=== PATIENT | male | born 1965 | race Caucasian/White ===

== ENCOUNTER 2020-05-23 08:29 | Day surgery (SDC) | payer OTHER ==
[2020-05-23] VITALS (8 sets, daily range): BP systolic 101–119; BP diastolic 45–78; PULSE 89–95; TEMP 98
[~2020-05-23] VITALS: Ht 175.3 cm; Wt 99.0 kg
[2020-05-23] MEDS ORDERED: ASPIRIN E.C. 8181 MG PO (09:03)
[2020-05-23] MEDS ORDERED: TOPROL XL 50MG50 MG PO (09:04)
[2020-05-23] MEDS ORDERED: CIALIS5 MG PO (09:04)
[2020-05-23] MEDS ORDERED: NEXIUM 40MG40 MG PO (09:14)
[2020-05-23] MEDS ORDERED: FLEXERIL 1010 MG/TAB PO (09:14)
[2020-05-23] MEDS ORDERED: MOTRIN 200200 MG/TAB PO (09:16)
[2020-05-23] MEDS ORDERED: CRESTOR40 MG PO (09:17)
[2020-05-23] MEDS ORDERED: MICARDIS40 MG PO (09:19)
[2020-05-23] MEDS ORDERED: GLUCOPHAGE500 MG/TAB PO (09:20)
[2020-05-23] MEDS ORDERED: NITRO-DUR0.2 MG/PAT TD (09:21)
[2020-05-23 09:33] LABS: CALCIUM 9.4 mg/dL (8.4-10.2); CREATININE, serum 1.16 (0.66-1.25); POTASSIUM 4.4 mmol/L (3.4-5.0)
[2020-05-23 09:37] LABS: HEMATOCRIT 43.4 % (42.0-52.0); HEMOGLOBIN 15.4 g/dl (13.5-18.0); MEAN CELL VOLUME 89 fl (80.0-100.0); MEAN CORPUSCULAR HEMOGLOBIN 32 pg (27.0-31.0); MEAN CORPUSCULAR HGB CONC 36 g/dl (33.0-37.0); MEAN PLATELET VOLUME 10.1 fl (7.4-10.4); PLATELET COUNT 160 K/mm3 (130-400); RED BLOOD COUNT 4.89 M/mm3 (4.20-5.60)
[2020-05-23 09:38] LABS: INR 1.1 (0.8-3.0); PROTHROMBIN TIME 12.4 SECONDS (9.7-12.8)
--- NOTE | 2020-05-23 10:31 | NUR ---
SEE WINIFRED FOR ALL MEDICATION TIMES, INTRA AND POST SEDATION ASSESSMENTS
--- NOTE | 2020-05-23 10:55 | NUR ---
To eu 12 via bed from [employer] [employer], in room. Pt is alert to surroundings. call light in reach, tele on. site remains clean and dry with band on. takes coffee and crackers
--- NOTE | 2020-05-23 11:40 | NUR ---
pt sits up in bed, no c/o ate lunch, site unchanged
--- NOTE | 2020-05-23 12:55 | NUR ---
started to release air in TR band, 2-3cc at at time over 15 min, no bleeding or swelling noted, bandaid over the site with coban. Reviewed discharge inst. with pt on care of site, activity, and next appt. Pt also not to take metformin for 48 hours, with verbal understanding.
--- NOTE | 2020-05-23 13:20 | NUR ---
pt up in [place], tolerated well, int d'cd intact. pt dressed. Discharged via w/c to car with
== END 2020-05-23 13:25 | disposition home or self-care (01) ==
LOC: COL.CAR 08:29
PROVIDERS: Internal Medicine Cardiovascular Disease
DX: R07.9 Chest pain, unspecified (principal); R94.39 Abnormal result of other cardiovascular function study; I20.0 Unstable angina; I10 Essential (primary) hypertension; E78.5 Hyperlipidemia, unspecified; Z88.2 Allergy status to sulfonamides
CPT/HCPCS: C1769; J1644; J2250; J3010